=== PATIENT | female | born 1990 | race Caucasian/White ===

== ENCOUNTER → 2025-07-28 | Outpatient (CLI) | payer BC ==
[2025-07-28 17:10] LABS: PLATELET COUNT, AUTOMATED 244 10^3/uL (150-450)
[2025-07-28 17:14] LABS: ALT/SGPT 15.0 U/L (7.0-40); AST/SGOT 14.0 U/L (<34); CALCIUM LEVEL 10.0 MG/DL (8.5-10.1); CARBON DIOXIDE LEVEL 29.0 MMOL/L (20-31); CHLORIDE LEVEL 104.0 MMOL/L (98-107); CREATININE FOR GFR 0.9 MG/DL (0.55-1.30); GLOMERULAR FILTRATION RATE 87.1 (>60); POTASSIUM SERUM 4.3 MMOL/L (3.5-5.1); SODIUM LEVEL 142.0 MMOL/L (136-145)
[2025-07-28 17:15] LABS: FREE T4 1.36 NG/DL (0.89-1.76)
[2025-07-28 17:16] LABS: TOTAL 25(OH) VITAMIN D 39.2 NG/ML (20.0-100.0)
[2025-07-28 17:17] LABS: VITAMIN B12 LEVEL 392.0 PG/ML (211-911)
== END ==
LOC: M PLALAB 15:03
DX: R63.4 Abnormal weight loss (principal)